=== PATIENT | male | born 1970 | race Caucasian/White ===

== ENCOUNTER 2019-04-29 22:34 | Emergency (ER) | payer SELFPAY ==
[~2019-04-29] VITALS: Ht 182.9 cm; Wt 90.7 kg
[2019-04-29 22:34] VITALS: BP_SYST 124
[2019-04-29] MEDS ORDERED: ASPIRIN 81 MG TAB.CHEW PO ONE (23:00)
[2019-04-29 23:05] LABS: BASOPHILS # (AUTO) 0.1 K/uL (0.0-0.2); BASOPHILS % (AUTO) 0.8 % (0.0-2.0); EOSINOPHILS # (AUTO) 0.3 K/uL (0.0-0.4); EOSINOPHILS % (AUTO) 3.4 % (0.0-4.0); HEMOGLOBIN 14.2 g/dL (14.0-18.0); LYMPHOCYTES # (AUTO) 3.1 K/uL (1.0-5.5); MEAN CORPUSCULAR HEMOGLOBIN 31 pg (27-31); MEAN CORPUSCULAR HGB CONC 36 % (32-36); MEAN CORPUSCULAR VOLUME 87 fL (79.0-98.0); MONOCYTES # (AUTO) 0.8 K/uL (0.0-1.0); MONOCYTES % (AUTO) 9.6 % (1.7-9.3); NEUTROPHILS # (AUTO) 3.8 K/uL (1.8-7.7); NEUTROPHILS % (AUTO) 47.2 % (40.0-70.0); PLATELET COUNT (AUTO) 261 K/uL (130-430); RED BLOOD CELL COUNT(AUTO) 4.62 MIL/uL (4.2-6.2); RED CELL DISTRIBUTION WIDTH 12.3 % (9.0-15.0)
[2019-04-29 23:14] LABS: BILIRUBIN,URINE NEGATIVE (NEGATIVE); BLOOD, URINE NEGATIVE (NEGATIVE); CLARITY/URINE CLEAR (CLEAR); COLOR,URINE YELLOW (YELLOW); GLUCOSE,URINE NEGATIVE (NEGATIVE); KETONES,URINE NEGATIVE (NEGATIVE); LEUKOCYTE ESTERASE ,URINE NEGATIVE (NEGATIVE); NITRITE, URINE NEGATIVE (NEGATIVE); PROTEIN URINE NEGATIVE (NEGATIVE); UROBILINOGEN,URINE 0.2 (0.2-1.0)
[2019-04-29 23:21] LABS: CALCIUM 7.9 mg/dL (8.4-11.0); CREATININE 1.41 mg/dL (0.55-1.30); POTASSIUM 3.7 mmol/L (3.5-5.1)
[2019-04-29 23:27] LABS: ALBUMIN 3.6 g/dL (3.4-4.8); TOTAL BILIRUBIN 0.2 mg/dL (0.0-1.0)
[2019-04-29 23:28] LABS: PROTHROMBIN TIME 9.9 SECS (9.5-12.5)
[2019-04-29 23:36] LABS: BARBITURATE, URINE NEGATIVE (NEG <=200); BENZODIAZEPINE, URINE NEGATIVE (NEG <=150); CANNABINOID, URINE NEGATIVE (NEG <=50); COCAINE, URINE NEGATIVE (NEG <=150); METHAMPHETAMINES SCREEN,URINE NEGATIVE (NEG <=500); OPIATE, URINE NEGATIVE (NEG <=100); PHENCYCLIDINE SCREEN,URINE NEGATIVE (NEG <=25); UR TRICYCLIC ANTIDEPRESSANTS NEGATIVE (NEG <=300); URINE AMPHETAMINE NEGATIVE (NEG <=500); URINE METHADONE NEGATIVE (NEG <=200); URINE OXYCODONE SCREEN NEGATIVE (NEG <=100); URINE PROPOXYPHENE SCREEN NEGATIVE (NEG <=300)
[2019-04-29] MEDS ORDERED: CALCIUM GLUCONATE 1 GM in NS 100 ML IV ONE (23:45)
[2019-04-30] MEDS ORDERED: CALCIUM GLUCONATE 1 GM/10 ML VIAL ONE ×2 (00:02)
[2019-04-30 00:56] VITALS: BP_SYST 119
== END 2019-04-30 00:56 | disposition home or self-care (01) ==
LOC: SED 22:34
DX: E83.51 Hypocalcemia (principal); R07.9 Chest pain, unspecified; I10 Essential (primary) hypertension; K21.9 Gastro-esophageal reflux disease without esophagitis; E78.00 Pure hypercholesterolemia, unspecified
CPT/HCPCS: 36415; 71045; 80053; 80307; 81003; 82550; 83735; 83880; 84484; 85025; 85379; 85610; 93005; 96365; 99284; J0610

== ENCOUNTER 2021-07-31 20:36 | Emergency (ER) | payer OTHER ==
[~2021-07-31] VITALS: Ht 182.9 cm; Wt 97.5 kg
[2021-07-31 20:58] VITALS: BP_SYST 142
[2021-07-31] MEDS ORDERED: ZOLOFT PO (21:05)
[2021-07-31] MEDS ORDERED: NACL 0.9% 1,000 ML IV ONE (21:45)
[2021-07-31] MEDS ORDERED: KETOROLAC TROMETHAMINE 30 MG VIAL IVP ONE (21:45)
[2021-07-31 22:23] LABS: BILIRUBIN,URINE NEGATIVE (NEGATIVE); BLOOD, URINE NEGATIVE (NEGATIVE); CLARITY/URINE CLEAR (CLEAR); COLOR,URINE YELLOW (YELLOW); GLUCOSE,URINE NEGATIVE (NEGATIVE); KETONES,URINE NEGATIVE (NEGATIVE); LEUKOCYTE ESTERASE ,URINE NEGATIVE (NEGATIVE); NITRITE, URINE NEGATIVE (NEGATIVE); PROTEIN URINE NEGATIVE (NEGATIVE); UROBILINOGEN,URINE 0.2 (0.2-1.0)
[2021-07-31 22:39] LABS: CALCIUM 8.4 mg/dL (8.4-11.0); CREATININE 1.08 mg/dL (0.55-1.30)
[2021-07-31 22:44] LABS: BASOPHILS # (AUTO) 0.1 K/uL (0.0-0.2); BASOPHILS % (AUTO) 0.7 % (0.0-2.0); EOSINOPHILS # (AUTO) 0.3 K/uL (0.0-0.4); EOSINOPHILS % (AUTO) 3.8 % (0.0-4.0); HEMATOCRIT 38.9 % (36-54); HEMOGLOBIN 13.5 g/dL (14.0-18.0); LYMPHOCYTES # (AUTO) 2.5 K/uL (1.0-5.5); LYMPHOCYTES % (AUTO) 35.2 % (20.5-51.5); MEAN CORPUSCULAR HEMOGLOBIN 30 pg (27-31); MEAN CORPUSCULAR HGB CONC 35 % (32-36); MEAN CORPUSCULAR VOLUME 86 fL (79.0-98.0); MONOCYTES # (AUTO) 0.7 K/uL (0.0-1.0); MONOCYTES % (AUTO) 10.5 % (1.7-9.3); NEUTROPHILS # (AUTO) 3.5 K/uL (1.8-7.7); NEUTROPHILS % (AUTO) 49.8 % (40.0-70.0); PLATELET COUNT (AUTO) 267 K/uL (130-430); RED BLOOD CELL COUNT(AUTO) 4.55 MIL/uL (4.2-6.2); RED CELL DISTRIBUTION WIDTH 12.2 % (9.0-15.0)
[2021-07-31 22:45] LABS: ALBUMIN 3.6 g/dL (3.4-4.8); TOTAL BILIRUBIN 0.3 mg/dL (0.0-1.0)
[2021-08-01] MEDS ORDERED: PIPERACILLIN/TAZO 3.375 GM in NS 50 ML IV ONE ×2
[2021-08-01] MEDS ORDERED: PIPERACILLIN/TAZOBACTAM 3.375 GM/VIAL (ZOSYN) IV ONE (00:06)
[2021-08-01] MEDS ORDERED: METR500T PO (01:40)
[2021-08-01] MEDS ORDERED: CIPR500T5 PO (01:40)
[2021-08-01 01:50] VITALS: BP_SYST 142
== END 2021-08-01 01:50 | disposition home or self-care (01) ==
LOC: SED 20:36
DX: S63.602A Unspecified sprain of left thumb, initial encounter (principal); I10 Essential (primary) hypertension; K21.9 Gastro-esophageal reflux disease without esophagitis; Z79.899 Other long term (current) drug therapy; X50.0XXA Overexertion from strenuous movement or load, initial encounter; Y93.89 Activity, other specified; Y92.89 Other specified places as the place of occurrence of the external cause; Y99.8 Other external cause status
CPT/HCPCS: 36415; 73140; 74176; 76376; 80053; 81003; 85025; 87040; 96361; 96365; 99285; J1885; J2543; J7030

== ENCOUNTER → 2021-11-14 | Emergency (ER) | payer OTHER ==
[~2021-11-14] VITALS: Ht 188 cm; Wt 99.8 kg
[~2021-11-14] MED LIST: BEN50 PO; CETI1TAB2 PO; CIPR500T5 PO; DESO60OI6 TP; DIPHENHYDRAMINE HCL 50 MG CAPSULE PO ONE; EPIN0.3P3 IM; FAMO20TA8 PO; FAMOTIDINE 20 MG TABLET PO ONE; METR500T PO; PRED20TA PO; ZOLOFT PO; predniSONE 20 MG TABLET PO ONE
[2021-11-14 20:43] VITALS: BP_SYST 132
== END | disposition home or self-care (01) ==
LOC: SED 06:12
DX: L25.9 Unspecified contact dermatitis, unspecified cause (principal); I10 Essential (primary) hypertension; K21.9 Gastro-esophageal reflux disease without esophagitis; E78.00 Pure hypercholesterolemia, unspecified; Z79.899 Other long term (current) drug therapy
CPT/HCPCS: 99284; J7512; Q0163

== ENCOUNTER 2022-03-30 16:11 | Emergency (ER) | payer OTHER ==
[~2022-03-30 16:11] MED LIST changes: -CETI1TAB2 PO; -DIPHENHYDRAMINE HCL 50 MG CAPSULE PO ONE; -FAMOTIDINE 20 MG TABLET PO ONE; -predniSONE 20 MG TABLET PO ONE
[2022-03-30 16:12] VITALS: BP_SYST 134
[2022-03-30 17:51] LABS: BASOPHILS % (AUTO) 0.5 % (0.0-2.0); EOSINOPHILS # (AUTO) 0.3 K/uL (0.0-0.4); EOSINOPHILS % (AUTO) 4.7 % (0.0-4.0); HEMOGLOBIN 13.5 g/dL (14.0-18.0); LYMPHOCYTES # (AUTO) 2.6 K/uL (1.0-5.5); LYMPHOCYTES % (AUTO) 36.9 % (20.5-51.5); MEAN CORPUSCULAR HEMOGLOBIN 29 pg (27-31); MEAN CORPUSCULAR HGB CONC 35 % (32-36); MEAN CORPUSCULAR VOLUME 85 fL (79.0-98.0); MONOCYTES # (AUTO) 0.7 K/uL (0.0-1.0); MONOCYTES % (AUTO) 10.2 % (1.7-9.3); NEUTROPHILS # (AUTO) 3.4 K/uL (1.8-7.7); NEUTROPHILS % (AUTO) 47.7 % (40.0-70.0); PLATELET COUNT (AUTO) 282 K/uL (130-430); RED BLOOD CELL COUNT(AUTO) 4.61 MIL/uL (4.2-6.2); RED CELL DISTRIBUTION WIDTH 12.1 % (9.0-15.0); WHITE BLOOD COUNT (AUTO) 7.1 K/uL (4.8-10.8)
[2022-03-30 18:01] LABS: ANION GAP 5 (5-15); CALCIUM 8.9 mg/dL (8.4-11.0); CHLORIDE 102 mmol/L (98-107); GLUCOSE 123 mg/dL (70-99); POTASSIUM 4.2 mmol/L (3.5-5.1); SODIUM SERUM 134 mmol/L (136-145); UREA NITROGEN, BLOOD 21 mg/dL (8-21)
[2022-03-30 18:03] LABS: GFR AFRICAN AMERICAN 91 mL/min (>90)
[2022-03-30 18:05] LABS: ALANINE AMINOTRANSFERASE 38 U/L (12-78); ALBUMIN 3.8 g/dL (3.4-4.8); ASPARTATE AMINOTRANSFERASE 25 U/L (10-37); TOTAL BILIRUBIN 0.3 mg/dL (0.0-1.0)
[2022-03-30 18:06] LABS: C-REACTIVE PROTEIN QUANT < 0.2 mg/dL (0-0.5)
[2022-03-30 18:28] LABS: ERYTHROCYTE SEDIMENTATION RATE 6 MM/HR (0-15)
[2022-03-30] MEDS ORDERED: ZOLP5TAB2 PO (18:43)
--- NOTE | 2022-03-30 19:20 | NUR ---
CALLED PATIENT IN TENT AND ED LOBBY, PARKING LOT WITHOUT ANSWER. TANIYA DEVI
--- NOTE | 2022-03-30 19:20 | NUR ---
Patient given written and verbal discharge instructions and verbalizes understanding. ER MD discussed with patient the results and treatment provided. Patient in stable condition. ID arm band removed. IV catheter removed intact and dressing applied, no active bleeding. Rx of N/A given. Patient educated on pain management and to follow up with PMD. Pain Scale . Opportunity for questions provided and answered. Medication side effect fact sheet provided. DISCHARGE BY MD. NO NURSING INTERVENTION NEEDED AT THIS TIME.
--- NOTE | 2022-03-30 20:10 | NUR ---
called pt x2 withou answer in tent, lobby and parking lot. left i\without discharge paperwork TANIYA DEVI
== END 2022-03-30 19:20 | disposition home or self-care (01) ==
LOC: SED 16:11
DX: R51.9 Headache, unspecified (principal); I10 Essential (primary) hypertension; K21.9 Gastro-esophageal reflux disease without esophagitis; Z79.899 Other long term (current) drug therapy
CPT/HCPCS: 36415; 70450-TC; 76376; 80053; 84484; 85025; 85651-TC; 86140; 93005; 99285

== ENCOUNTER 2022-06-11 01:45 | Emergency (ER) | payer OTHER ==
[~2022-06-11] VITALS: Ht 182.9 cm; Wt 98.9 kg
[~2022-06-11 01:45] MED LIST changes: +ZOLP5TAB2 PO
[2022-06-11 01:52] VITALS: BP_SYST 137
--- NOTE | 2022-06-11 01:56 | NUR ---
DR. MOISE SPEAKING TO PATIENT AT THIS TIME. PER PATIENT, PATIENT HAS BEEN HAVING INCREASINGLY WORSE LEFT ABDOMINAL PAIN AND STATES THIS IS THE SAME TYPE OF PAIN HE GETS WHEN HE HAS DIVERTICULITIS. PATIENT BROUGHT BACK TO ROOM 5, REPORT GIVEN TO
[2022-06-11] MEDS ORDERED: KETOROLAC TROMETHAMINE 30 MG VIAL IVP ONE (02:00)
[2022-06-11] MEDS ORDERED: KETOROLAC TROMETHAMINE 60 MG/2 ML VIAL IM ONE (02:00)
[2022-06-11] MEDS ORDERED: AMOXICILLIN/CLAVULANATE POTASSIUM 875 MG TABLET PO ONE (02:15)
[2022-06-11] MEDS ORDERED: AUG875 PO (02:48)
[2022-06-11] MEDS ORDERED: IBUP-1971 PO (02:48)
[2022-06-11 03:31] LABS: BASOPHILS # (AUTO) 0.1 K/uL (0.0-0.2); EOSINOPHILS # (AUTO) 0.4 K/uL (0.0-0.4); EOSINOPHILS % (AUTO) 3.7 % (0.0-4.0); HEMATOCRIT 41.5 % (36-54); LYMPHOCYTES # (AUTO) 3.4 K/uL (1.0-5.5); LYMPHOCYTES % (AUTO) 34.2 % (20.5-51.5); MEAN CORPUSCULAR VOLUME 84 fL (79.0-98.0); MONOCYTES # (AUTO) 0.8 K/uL (0.0-1.0); MONOCYTES % (AUTO) 8.3 % (1.7-9.3); NEUTROPHILS # (AUTO) 5.2 K/uL (1.8-7.7); NEUTROPHILS % (AUTO) 52.8 % (40.0-70.0); PLATELET COUNT (AUTO) 275 K/uL (130-430); RED BLOOD CELL COUNT(AUTO) 4.94 MIL/uL (4.2-6.2); RED CELL DISTRIBUTION WIDTH 12.8 % (9.0-15.0); WHITE BLOOD COUNT (AUTO) 9.8 K/uL (4.8-10.8)
[2022-06-11 03:37] LABS: BILIRUBIN,URINE NEGATIVE (NEGATIVE); BLOOD, URINE NEGATIVE (NEGATIVE); CLARITY/URINE CLEAR (CLEAR); COLOR,URINE YELLOW (YELLOW); GLUCOSE,URINE NEGATIVE (NEGATIVE); KETONES,URINE NEGATIVE (NEGATIVE); LEUKOCYTE ESTERASE ,URINE NEGATIVE (NEGATIVE); NITRITE, URINE NEGATIVE (NEGATIVE); PROTEIN URINE NEGATIVE (NEGATIVE); UROBILINOGEN,URINE 0.2 (0.2-1.0)
[2022-06-11 03:40] LABS: CALCIUM 8.9 mg/dL (8.4-11.0); CREATININE 1.29 mg/dL (0.55-1.30)
[2022-06-11 03:46] LABS: ALBUMIN 3.8 g/dL (3.4-4.8); TOTAL BILIRUBIN 0.3 mg/dL (0.0-1.0)
--- NOTE | 2022-06-11 03:56 | NUR ---
Patient given written and verbal discharge instructions and verbalizes understanding. ER MD discussed with patient the results and treatment provided. Patient in stable condition. ID arm band removed. IV catheter removed intact and dressing applied, no active bleeding. Rx of [] given. Patient educated on pain management and to follow up with PMD. Pain Scale []. Opportunity for questions provided and answered. Medication side effect fact sheet provided.
== END 2022-06-11 03:35 | disposition home or self-care (01) ==
LOC: SED 01:45
DX: R10.32 Left lower quadrant pain (principal); K21.9 Gastro-esophageal reflux disease without esophagitis; I10 Essential (primary) hypertension; Z79.899 Other long term (current) drug therapy
CPT/HCPCS: 99284; 93978; 80053; 85025; 36415; 96372; 81003; J1885

== ENCOUNTER 2023-11-05 21:07 | Emergency (ER) | payer OTHER ==
[~2023-11-05] VITALS: Ht 180.3 cm; Wt 95.3 kg
[~2023-11-05 21:07] MED LIST changes: +AUG875 PO; +IBUP-1971 PO
[2023-11-05 21:19] VITALS: BP_SYST 142; PULSE 83; RESP 16; TEMP 97.3; O2SAT 98
[2023-11-05 21:52] LABS: BASOPHILS # (AUTO) 0.1 K/uL (0.0-0.2); BASOPHILS % (AUTO) 0.7 % (0.0-2.0); EOSINOPHILS # (AUTO) 0.4 K/uL (0.0-0.4); EOSINOPHILS % (AUTO) 4.6 % (0.0-4.0); HEMATOCRIT 43.8 % (36-54); HEMOGLOBIN 15.2 g/dL (14.0-18.0); LYMPHOCYTES # (AUTO) 2.2 K/uL (1.0-5.5); LYMPHOCYTES % (AUTO) 25.8 % (20.5-51.5); MEAN CORPUSCULAR HEMOGLOBIN 29 pg (27-31); MEAN CORPUSCULAR HGB CONC 35 % (32-36); MEAN CORPUSCULAR VOLUME 85 fL (79.0-98.0); MONOCYTES # (AUTO) 0.9 K/uL (0.0-1.0); MONOCYTES % (AUTO) 10.7 % (1.7-9.3); NEUTROPHILS # (AUTO) 4.9 K/uL (1.8-7.7); NEUTROPHILS % (AUTO) 58.2 % (40.0-70.0); PLATELET COUNT (AUTO) 312 K/uL (130-430); RED BLOOD CELL COUNT(AUTO) 5.18 MIL/uL (4.2-6.2); RED CELL DISTRIBUTION WIDTH 12.9 % (9.0-15.0); WHITE BLOOD COUNT (AUTO) 8.5 K/uL (4.8-10.8)
[2023-11-05 22:04] LABS: CALCIUM 8.8 mg/dL (8.4-11.0); CREATININE 1.36 mg/dL (0.55-1.30); POTASSIUM 4.8 mmol/L (3.5-5.1)
[2023-11-05] MEDS ORDERED: METR-154 PO (22:24)
[2023-11-05] MEDS ORDERED: CIPR500T5 PO (22:24)
[2023-11-05 22:25] LABS: BILIRUBIN,URINE NEGATIVE (NEGATIVE); BLOOD, URINE NEGATIVE (NEGATIVE); CLARITY/URINE CLEAR (CLEAR); COLOR,URINE YELLOW (YELLOW); GLUCOSE,URINE NEGATIVE (NEGATIVE); KETONES,URINE TRACE (NEGATIVE); LEUKOCYTE ESTERASE ,URINE NEGATIVE (NEGATIVE); NITRITE, URINE NEGATIVE (NEGATIVE); PROTEIN URINE NEGATIVE (NEGATIVE); UROBILINOGEN,URINE 0.2 (0.2-1.0)
[2023-11-05] MEDS: metroNIDAZOLE 500 MG TABLET PO ONE (22:29)
[2023-11-05] MEDS: CIPROFLOXACIN HCL 500 MG TABLET PO ONE (22:29)
[2023-11-05 22:33] VITALS: BP_SYST 142; PULSE 76; RESP 16; TEMP 97.4; O2SAT 98
== END 2023-11-05 22:33 | disposition home or self-care (01) ==
LOC: SED 21:07
DX: K57.92 Diverticulitis of intestine, part unspecified, without perforation or abscess without bleeding (principal); K21.9 Gastro-esophageal reflux disease without esophagitis; I10 Essential (primary) hypertension; E78.00 Pure hypercholesterolemia, unspecified; Z79.899 Other long term (current) drug therapy
CPT/HCPCS: 36415; 76376; 80048; 81001; 81003; 82150; 83605; 83690; 85025; 99284